=== PATIENT | male | born 1965 | race African-American/Black ===

== ENCOUNTER 2018-11-15 08:51 | Day surgery (SDC) | payer OTHER ==
[2018-11-14 13:22] VITALS: BMI 23.1
[2018-11-15] MEDS ORDERED: MIDAZOLAM HCL 2 MG/2 ML SINGLE DOSE VIAL ONE (11:20)
[2018-11-15] MEDS ORDERED: MORPHINE SULFATE 10 MG/1 ML *VIAL ONE (11:23)
[2018-11-15] MEDS ORDERED: PROPOFOL 20 ML ONE (11:36)
[2018-11-15] MEDS ORDERED: BUPIVACAINE HCL/PF 0.5% (5MG/ML) 10 ML VIAL IJ ONE (11:52)
[2018-11-15] MEDS ORDERED: MORPHINE SULFATE/PF 10 MG/ML ML IT ONE (12:03)
[2018-11-15] MEDS ORDERED: ONDANSETRON 4 MG/2 ML VIAL IVPUSH PRN (12:23)
[2018-11-15] MEDS ORDERED: PROMETHAZINE HCL 25 MG/1 ML VIAL IVPUSH PRN (12:23)
[2018-11-15] MEDS ORDERED: oxyCODONE HCL 5 MG TABLET PO PRN (12:23)
[2018-11-15] MEDS ORDERED: hydrALAZINE HCL 20 MG/ML VIAL IVPUSH ONE ×2 (12:31→12:35)
[2018-11-15 12:36] VITALS: TEMP 97.5
[2018-11-15] MEDS ORDERED: ONDANSETRON 4 MG/2 ML VIAL ONE (12:41)
--- NOTE | 2018-11-15 13:23 | OP ---
DATE OF OPERATION: 11/15/2018 PREOPERATIVE DIAGNOSIS: Left knee torn meniscus. POSTOPERATIVE DIAGNOSIS: Torn medial and lateral menisci of the left knee with chondromalacia, hypertrophic synovium, joint debris and osteochondral defect on the lateral patellar facet. PROCEDURE PERFORMED: Operative arthroscopy of the left knee with partial medial and lateral meniscectomy, chondroplasty, synovectomy, joint debridement and microfracture technique for local stem cell recruitment for the lateral patellar face. SURGEON: Nakita Mcdonald M.D. RN INFUSION: GLO Mccarthy ANESTHESIOLOGIST: Jabari Blandon M.D. ANESTHESIA: General. DESCRIPTION OF PROCEDURE: The patient was brought to the operating room and gently transferred from the stretcher to the OR table, with all bony prominences well padded. The left leg was prepared and draped in a sterile fashion. The patient was given intravenous antibiotics and copious irrigation throughout the procedure to minimize the risk of infection. A complete risk/benefit/alternative discussion was conducted with the patient, which was inclusive of but not limited to infection, bleeding, , paralysis, increased pain, need for repeat surgery. The patient asked questions, understood the procedure, and desired to proceed with surgical treatment. Following sterile preparation and draping of the left knee, appropriate time-out identifying the surgeon, type of surgery, site of surgery, anesthesiologist and additional risks were stated, and everyone was in agreement. Following this, the surgery consisted of the patient having left leg exsanguinated with the use of an Esmarch bandage and the tourniquet inflated to 325 mmHg. Suprapatellar medial and lateral joint line portals were used to introduce the arthroscope and arthroscopic instruments. The knee was examined. There was noted to be hypertrophic synovium in the suprapatellar pouch. Partial synovectomy was performed. There was noted to be no loss body in the medial and lateral gutters or plica. There were noted to be chondromalacic changes on the inferior surface of the patella. chondroplasty was performed. There was noted to be an osteochondral defect on the lateral patellar face, consistent with an impaction injury. This was debrided. Bony awls of appropriate angles and shapes were used to create a microfracture pattern on the patellar articular osteochondral defect. It was noted that good penetration and was identified. Following this, examination of the medial meniscus demonstrated tearing of the posterior horn. This was resected using the shaver and radiofrequency wand. The intercondylar region was noted to have joint debris, and joint debridement was performed. The cruciate ligaments were found to be intact. The lateral meniscus was found to have a tear of the posterior horn. This was resected using shaver and radiofrequency wand. The knee joint was then copiously irrigated with sterile saline irrigant. The wounds were closed with 4-0 undyed Vicryl, followed by Steri-Strips, Xeroform, 4 x 4's, sterile wrap with Maikel bandage and a knee immobilizer. The tourniquet was deflated after approximately 20 minutes of surgical time. There were no intraoperative complications. NAKITA MCDONALD M.D. MARY [id number]
[2018-11-15 14:13] VITALS: BP 127/80; PULSE 61
== END 2018-11-15 14:20 | disposition home or self-care (01) ==
LOC: FASU 08:51
PROVIDERS: ATTEND Orthopaedic Surgery
PROC: 0SBD4ZZ Excision of Left Knee Joint, Percutaneous Endoscopic Approach (ICD-10-PCS; 2018-11-15)
PROC: 0SBD4ZZ Excision of Left Knee Joint, Percutaneous Endoscopic Approach (ICD-10-PCS; principal; 2018-11-15 10:00)
DX: S83.242A Other tear of medial meniscus, current injury, left knee, initial encounter (principal); S83.282A Other tear of lateral meniscus, current injury, left knee, initial encounter; M94.262 Chondromalacia, left knee; M67.262 Synovial hypertrophy, not elsewhere classified, left lower leg; M21.862 Other specified acquired deformities of left lower leg; X58.XXXA Exposure to other specified factors, initial encounter; Y93.9 Activity, unspecified; Y92.9 Unspecified place or not applicable
CPT/HCPCS: 94760